=== PATIENT | male | born 2000 | race Caucasian/White ===

== ENCOUNTER 2018-03-22 19:16 | Emergency (ER) | payer BC ==
[2018-03-22] MEDS ORDERED: Ketorolac INJ* 30 MG/ML 1 ML VIAL IV PUSH ONE (19:32)
[2018-03-22] MEDS ORDERED: NS 0.9% 1000 ML* 1,000 ML IV ONE (19:32)
[2018-03-22] MEDS ORDERED: Acetaminophen ADULT LIQ* 650 MG/20.3 ML UDC PO ONE (19:42)
[2018-03-22] MEDS ORDERED: Ondansetron INJ* 2 MG/ML VIAL IV ONE (19:42)
--- NOTE | 2018-03-22 19:45 | ED ---
HPI Febrile Illness - HPI Summary HPI Summary: Pt is a 17 y/o male who presents to the ED c/o fever. He began to have N/V, chills, fatigue, CHAPIN, wet cough, sore throat, mild neck pain, and mild CP with breathing 4 days ago. Last night, he had some mild diarrhea as well. As per mother, the vomiting and dry heaving starts in the morning, then returns in the evening for several hours. Pt denies any ear ache, sinus tenderness, or rhinorrhea. He did not get this seasons flu shot. Pt denies any hx of mono. - History of Current Complaint Chief Complaint: EDFluSymptoms Time Seen by Provider: 03/22/18 19:32 Hx Obtained From: Patient, Family/Insect Control Aide - Mother Onset/Duration: Started Days Ago - 4, Still Present Timing: Constant, Intermittent - N/V intermittent Current Severity: Moderate Pain Intensity: 4 Pain Scale Used: 0-10 Numeric Aggravating Factors: Nothing Alleviating Factors: Nothing Associated Signs and Symptoms: Chills, Diarrhea, Headache, Nausea, Sore Throat, Vomiting - Allergy/Home Medications Allergies/Adverse Reactions: Allergies Allergy/AdvReac Type Severity Reaction Status Date / Time Penicillins Allergy Hives Verified 03/22/18 19:27 PMH/Surg Hx/FS Hx/Imm Hx Endocrine/Hematology History: Denies: Hx Diabetes Cardiovascular History: Denies: Hx Hypertension - Cancer History Cancer Type, Location and Year: None. - Surgical History Surgery Procedure, Year, and Place: None. Infectious Disease History: No Infectious Disease History: Denies: Traveled Outside the [place] in Last 30 Days - Family History Known Family History: Negative: Cardiac Disease, Hypertension, Diabetes - Social History Alcohol Use: None Hx Substance Use: No Substance Use Type: Reports: None Hx Tobacco Use: No Smoking Status (MU): Never Smoked Tobacco Review of Systems Positive: Fever, Chills, Fatigue Positive: Sore Throat. Negative: Ear Ache, Nasal Discharge, Other - sinus tenderness Positive: Chest Pain - with breathing Positive: Cough Positive: Vomiting, Diarrhea, Nausea Negative: Myalgia - neck pain Positive: Headache All Other Systems Reviewed And Are Negative: Yes Physical Exam - Summary Physical Exam Summary: Appearance: Well appearing, no pain distress Skin: warm, dry, reflects adequate perfusion Head/face: normal Eyes: EOMI, SHOAIB ENT: mucous membranes moist, mild redness and clear mucus in posterior pharynx, wax obscuring TMs, no sinus tenderness Neck: supple, non-tender, no meningismus Respiratory: CTA, breath sounds present Cardiovascular: RRR, pulses symmetrical Abdomen: non-tender, soft, no RLQ tenderness Bowel Sounds: hypoactive Musculoskeletal: normal, strength/ROM intact Neuro: normal, sensory motor intact, A&Ox3 Triage Information Reviewed: Yes Vital Signs On Initial Exam: Initial Vitals Temp Pulse Resp BP Pulse Ox 103.1 F 112 20 117/55 98 03/22/18 19:20 03/22/18 19:20 03/22/18 19:20 03/22/18 19:20 03/22/18 19:20 Vital Signs Reviewed: Yes Diagnostics - Vital Signs Vital Signs Temp Pulse Resp BP Pulse Ox 03/22/18 19:20 103.1 F 112 20 117/55 98 - Laboratory Result Diagrams: 03/22/18 19:54 03/22/18 19:54 Lab Statement: Any lab studies that have been ordered have been reviewed, and results considered in the medical decision making process. Re-Evaluation - Re-Evaluation First Eval Re-Evaluation Time: 20:35 Change: Improved Comment: Pt feels better after medications. Course/Dx - Course Course Of Treatment: Nurse's notes reviewed. Patient with nausea vomiting and diarrhea and fever. No meningismus. No significant URI symptoms. Negative for flu. Mononucleosis test is negative as is CBC/CMP. No right lower quadrant pain. Hydrated here and treated for fever with improvement. His nausea was improved with Zofran. Continue similar outpatient. Likely viral. - Febrile Illness Differential Diagnoses: GI Disease, Meningitis, Sepsis, Other: - Appendicitis, bacterial/viral gastroenteritis - Diagnoses Provider Diagnoses: Gastroenteritis Discharge - Sign-Out/Discharge Documenting (check all that apply): Patient Departure - Discharge - Discharge Plan Condition: Improved Disposition: HOME Prescriptions: Ondansetron ODT TAB* [Zofran 4 MG Odt TAB*] 4 mg PO Q8H PRN #12 tab.odt PRN Reason: Nausea Patient Education Materials: Gastroenteritis (ED) Referrals: Jovani Guerrier MD [Primary Care Provider] - Additional Instructions: Stay well-hydrated. [place] diet as tolerated. Drink plenty of fluids. Tylenol , ibuprofen as needed for fever. Return with pain in the right lower abdomen, new symptoms, worse or other concerns. - Billing Disposition and Condition Condition: IMPROVED Disposition: Home - Attestation Statements Document Initiated by Lele: Yes Documenting Scribe: Aishwarya Campos Provider For Whom Lele is Documenting (Include Credential): Joni Thompson MD Scribe Attestation: IAishwarya, scribed for Joni Thompson MD on 03/22/18 at 2221. Scribe Documentation Reviewed: Yes Provider Attestation: The documentation as recorded by the Aishwarya hoffman accurately reflects the service I personally performed and the decisions made by me, Joni Thompson MD Status of Scribe Document: Viewed
[2018-03-22 20:04] LABS: ABS Basophils 0 10^3/ul (0-0.2); ABS Eosinophils 0 10^3/ul (0-0.6); ABS Lymphocytes 0.5 10^3/ul (1.0-4.8); ABS Monocytes 0.9 10^3/ul (0-0.8); ABS Neutrophils 5.7 10^3/ul (1.5-7.7); ABS Nucleated RBC 0 10^3/ul; Eosinophil % 0 %; Hematocrit 46 % (42-52); Hemoglobin 16.4 g/dl (14.0-18.0); Lymphocyte % 7.4 %; Mean Corpuscular HGB Conc 36 g/dl (31-36); Mean Corpuscular Hemoglobin 31 pg (27-31); Mean Corpuscular Volume 86 fL (80-94); Mean Platelet Volume 6.1 fL (7.4-10.4); Nucleated Red Blood Cells % 0; Platelet Count 134 10^3/ul (150-450); Red Blood Count 5.37 10^6/ul (4.00-5.40); Red Cell Distribution Width 12 % (10.5-15); White Blood Count 7.1 10^3/ul (3.5-10.8)
[2018-03-22 20:21] LABS: Albumin 4.7 g/dL (3.2-5.2); Albumin/Globulin Ratio 1.7 (1-3); BUN/Creatinine Ratio 17.9 (8-20); EGFR Non-African American 84.5 (>60); Globulin 2.7 g/dL (2-4); Potassium 4.3 mmol/L (3.5-5.0); Total Bilirubin 0.9 mg/dL (0.2-1.0); Total Protein 7.4 g/dL (6.4-8.9)
[2018-03-22] MEDS ORDERED: Ondansetron ODT TAB* 4 MG PO ONE (20:43)
[2018-03-22 21:22] VITALS: BP 110/60
== END 2018-03-22 22:42 | disposition home or self-care (01) ==
LOC: ED 19:16
DX: K52.9 Noninfective gastroenteritis and colitis, unspecified (principal); Z88.0 Allergy status to penicillin
CPT/HCPCS: 36415; 80053; 85025; 86308; 87651; 96361; 96374; 96375; 99283; A9270-GY; J1885; J2405